=== PATIENT | female | born 1970 | race Caucasian/White ===

== ENCOUNTER 2016-08-23 15:47 | Emergency (ER) | payer BC ==
[2016-08-23 15:59] VITALS: BP 118/70
--- NOTE | 2016-08-23 16:34 | UC ---
Shoulder Pain HPI - HPI Summary HPI Summary: Patient has had tendonitis in the shoulder for over a year, has a very repetitive motion job. the pain is now in her elbow and neck - History of Current Complaint Chief Complaint: UCUpperExtremity Stated Complaint: RIGHT ARM AND NECK SWELLING/PAIN Time Seen by Provider: 08/23/16 16:00 Hx Obtained From: Patient Hx Last Menstrual Period: 08/20/16 ?: No Onset/Duration: Sudden Onset, Lasting Weeks Timing: Constant Severity Initially: Mild Severity Currently: Moderate Character: Dull, Aching Aggravating Factor(s): Movement Alleviating Factor(s): Nothing Associated Signs And Symptoms: Positive: Negative - Allergies/Home Medications Allergies/Adverse Reactions: Allergies Allergy/AdvReac Type Severity Reaction Status Date / Time Penicillins Allergy Intermediate Hives Verified 08/23/16 15:59 Home Medications: Home Medications Ibuprofen TAB* [Motrin TAB* 600 MG] 600 mg PO Q8H PRN 08/23/16 [History Confirmed 08/23/16] PMH/Surg Hx/FS Hx/Imm Hx Previously Healthy: Yes Endocrine History Of: Denies: Diabetes Cardiovascular History Of: Denies: Cardiac Disorders Respiratory History Of: Denies: COPD GI/ History Of: Denies: Ulcer Neurological History Of: Denies: TIA Psychological History Of: Denies: Anxiety Cancer History Of: Denies: Lung Cancer - Surgical History Surgical History: Yes Surgery Procedure, Year, and Place: LEFT KNEE SURGERY, LEEP PROC. 2004, RT HAND SURGERY - Family History Known Family History: Positive: Hypertension Negative: Diabetes - Social History Alcohol Use: None Substance Use Type: Excessive Caffeine Substance Use Comment - Amount & Last Used: coffee all day long Smoking Status (MU): Heavy Every Day Tobacco Smoker Type: Cigarettes Amount Used/How Often: 1 PPD Length of Time of Smoking/Using Tobacco: 31 Years Have You Smoked in the Last Year: Yes Household Exposure Type: Cigarettes - Immunization History Most Recent Influenza Vaccination: Not the 2014/2015 Season Review of Systems Constitutional: Negative Skin: Negative Eyes: Negative ENT: Negative Respiratory: Negative Cardiovascular: Negative Gastrointestinal: Negative Genitourinary: Negative Motor: Negative Neurovascular: Negative Musculoskeletal: Arthralgia, Edema, Myalgia Neurological: Negative Psychological: Negative All Other Systems Reviewed And Are Negative: Yes Physical Exam Triage Information Reviewed: Yes Appearance: Well-Appearing, Well-Nourished, Pain Distress Vital Signs: Initial Vital Signs Temp 98.7 F 08/23/16 15:52 Pulse 77 08/23/16 15:52 Resp 14 08/23/16 15:52 BP 118/70 08/23/16 15:52 Pulse Ox 98 08/23/16 15:52 Vital Signs Reviewed: Yes Eye Exam: Normal Eyes: Positive: Conjunctiva Clear ENT Exam: Normal ENT: Positive: Hearing grossly normal, Pharynx normal, TMs normal Dental Exam: Normal Neck exam: Normal Neck: Positive: Supple, Nontender, No Lymphadenopathy Respiratory Exam: Normal Respiratory: Positive: Chest non-tender, Lungs clear, Normal breath sounds Cardiovascular Exam: Normal Cardiovascular: Positive: RRR, No Murmur, Pulses Normal Abdominal Exam: Normal Abdomen Description: Positive: Nontender, No Organomegaly, Soft Bowel Sounds: Positive: Present Musculoskeletal: Positive: Strength Intact, ROM Intact, Edema @ - in right upper arm diffuse edema, hypertonicity of the right lower arm, upper arm and musculature of the neck noted. numbness and tingling when head is turned from an elevated and abducted arm. Neurological Exam: Normal Psychological Exam: Normal Skin Exam: Normal Shoulder Course/Dx - Course Course Of Treatment: hx obtained, exam performed, meds reviewed, ROM examined, given referral to PT. - Differential Dx/Diagnosis Provider Diagnoses: thoracic outlet syndrome Discharge - Discharge Plan Condition: Stable Disposition: HOME Patient Education Materials: Thoracic Outlet Syndrome (ED) Referrals: Timothy Almanza [Physical Therapist] - No Primary Care Phys,NOPCP [Primary Care Provider] - Additional Instructions: 1. continue with ibuprofen for pain 2. follow up with physical therpay for stretching and joint pain.
== END 2016-08-23 16:33 | disposition home or self-care (01) ==
LOC: UCCORT 15:47
DX: G54.0 Brachial plexus disorders (principal)
CPT/HCPCS: 99211; G0463

== ENCOUNTER 2017-02-05 09:01 | Day surgery (SDC) | payer BC ==
[~2017-02-05 09:01] MED LIST: Buffered Lidocaine 0.9% SYRIN* 5 ML/SYR SYRINGE INTRADERM ONE
[2017-02-05] MEDS ORDERED: Clindamycin 900 MG IVPREMIX(* 900 MG/50 ML SDV IV ONE (09:14)
[2017-02-05] MEDS ORDERED: fentaNYL* 50 MCG/ML 2 ML VIAL (100 MCG VIAL) ONE (09:20)
[2017-02-05] MEDS ORDERED: Midazolam* 1 MG/ML 2 ML VIAL (2 MG) ONE (09:21)
[2017-02-05] MEDS ORDERED: Bupivacaine 0.25% SDV* 30 ML ONE (11:19)
[2017-02-05] MEDS ORDERED: Propofol* 10 MG/ML 20 ML BTL IV PUSH ONE (11:32)
[2017-02-05] MEDS ORDERED: Dexamethasone IV* 4 MG/ML 1 ML (4 MG) ONE (11:32)
[2017-02-05] MEDS ORDERED: Ondansetron INJ* 2 MG/ML VIAL ONE (11:32)
[2017-02-05] MEDS ORDERED: Lidocaine 2% PF * 5 ML VIAL ONE (11:32)
[2017-02-05 12:48] VITALS: BP 119/87
[2017-02-05] MEDS ORDERED: Scopolamine 1.5 mg* PATCH TRANSDERM PRN ×2 (13:05→13:06)
--- NOTE | 2017-02-05 18:50 | OP ---
DATE OF OPERATION: 02/05/17 [facility] DATE OF : 66 SURGEON: Claudy Alfredo MD PIPELINES SUPERVISOR: DAVON Talbot ANESTHESIOLOGIST: Dr. Mason. ANESTHESIA: General. PRE-OP DIAGNOSIS: Right cubital tunnel syndrome. POST-OP DIAGNOSIS: Right cubital tunnel syndrome. PROCEDURE PERFORMED: Right in situ cubital tunnel release. INDICATIONS: Damaris has had progressive symptoms in the ring and small fingers and pain shooting down the medial side of the arm. We talked about risks and benefits. She wanted to proceed. ESTIMATED BLOOD LOSS: 2 mL. COMPLICATIONS: None. FINDINGS: As expected. DESCRIPTION OF PROCEDURE: Damaris was seen in the preoperative holding area. The correct side, site, and procedure were identified. We came back to the operating room. The arm was prepped and draped in the usual fashion. A time- out was performed. We exsanguinated the arm with the Esmarch and the tourniquet was inflated to 250 mmHg. A curvilinear incision was made, centered over Duarte's ligament and extended proximally and distally in line with the ulnar nerve. Dissection was carried down through the subcutaneous tissue. The fascia proximally was released over the ulnar nerve. I then came distally and released Duarte's ligament to the FCU and then subfascial layer. Release was completed well past 8 cm proximal to the medial epicondyle and then distally until the entirety of the FCU fascia was released. I then checked for ulnar nerve subluxation and that was stable. So I went ahead and irrigated out the wound. Subcutaneous tissue was reapproximated with 3-0 Vicryl suture. Skin was closed with 3-0 Monocryl subcuticular suture and Steri-Strips. The operative area was infiltrated with 0.25% plain Marcaine. Wound was dressed with 4 x 4, sterile Webril, ABD, and an Fausto wrap. She was then woken up and taken to the recovery room in stable condition. [id number]/[facility] #: [id number] [facility]
== END 2017-02-05 13:11 | disposition home or self-care (01) ==
LOC: OREAST 09:01
PROVIDERS: ATTEND Orthopaedic Surgery Hand Surgery
DX: G56.21 Lesion of ulnar nerve, right upper limb (principal); F17.210 Nicotine dependence, cigarettes, uncomplicated
CPT/HCPCS: 81025; J1100; J2250; J2405; J2704; J3010

== ENCOUNTER 2018-07-29 17:38 | Emergency (ER) | payer BC ==
[2018-07-29 17:57] VITALS: BP 122/66
--- NOTE | 2018-07-29 18:22 | UC ---
Knee Pain HPI - HPI Summary HPI Summary: Patient states about 5 days ago she was syncopal episode at work. Patient states when she fell she struck her head and also injured her left knee. Patient was evaluated emergency department for syncopal episode. Patient had cain placed her head. Patient states at that time there was no focus given to her knee. Patient states her knee did not feel too bad until she returned to work this week. Patient states she started on a concrete for for 10 hours on Thursday and again today. Patient states Guilherme 2 hours understanding at work she's got significant pain. Patient states she's taken Tylenol with mild improvement. Without any paresthesia or weakness. No hip pain no back pain. Patient took Tylenol this morning at 9 but none since. Patient states she had a history of surgery on her left knee several years ago. Medications reviewed this visit Pt denies - History of Current Complaint Chief Complaint: UCLowerExtremity Stated Complaint: LEFT KNEE INJURY Time Seen by Provider: 07/29/18 18:16 Hx Obtained From: Patient Hx Last Menstrual Period: 05/19/18 ?: No Onset/Duration: Gradual Onset Pain Intensity: 9 - Allergies/Home Medications Allergies/Adverse Reactions: Allergies Allergy/AdvReac Type Severity Reaction Status Date / Time Penicillins Allergy Intermediate Hives Verified 07/29/18 17:50 Home Medications: Home Medications NK [No Home Medications Reported] 07/29/18 [History Confirmed 07/29/18] PMH/Surg Hx/FS Hx/Imm Hx Previously Healthy: Yes - Surgical History Surgical History: Yes Surgery Procedure, Year, and Place: LEFT KNEE SURGERY,. LEEP PROC. 2004,. RT HAND SURGERY. Rt BREAST - BIOPSY - W/ MARKER PLACED - BENIGN - Family History Known Family History: Positive: Hypertension, Non-Contributory Negative: Diabetes - Social History Occupation: Employed Full-time - [employer] Lives: With Family Alcohol Use: None Substance Use Type: None Substance Use Comment - Amount & Last Used: coffee all day long Smoking Status (MU): Heavy Every Day Tobacco Smoker Type: Cigarettes Amount Used/How Often: 1/2 PPD for 30 yrs Length of Time of Smoking/Using Tobacco: 31 Years Have You Smoked in the Last Year: Yes Household Exposure Type: Cigarettes - Immunization History Most Recent Influenza Vaccination: Not the Season Review of Systems All Other Systems Reviewed And Are Negative: Yes Constitutional: Positive: Negative Neurovascular: Positive: Negative Musculoskeletal: Positive: Other: - left knee Neurological: Positive: Negative Physical Exam - Summary Physical Exam Summary: Vital Signs Reviewed: Yes A+Ox3, no distress Eyes: Conjunctiva Clear ENT: Hearing grossly normal neck: supple Respiratory: Positive: No respiratory distress, No accessory muscle use Cardiovascular: skin color reflect adequate perfusion Musculoskeletal Exam: + SLE, + flex/ext knee with mild pain inferior patella, + flex/ext ankle Neg anterior/posterior drawer, Neg laxity with lateral joint pain No effusion, no ecchymosis, abraison Neurological: Positive: Alert, ambulatory without difficulty Psychological: Positive: Normal Response To Family Skin: Positive: no rash, no ecchymosis Triage Information Reviewed: Yes Vital Signs: Initial Vital Signs Temp 98.5 F 07/29/18 17:51 Pulse 84 07/29/18 17:51 Resp 16 07/29/18 17:51 BP 122/66 07/29/18 17:51 Pulse Ox 99 07/29/18 17:51 Diagnostics - Radiology No standard instances Radiology Interpretation Completed By: Radiologist - Patient Name: ML QUILES Medical Record#: [id number] Ordering Physician: Nevin Louis MD Acct.#: [id number] : 1970 Age: 48 Sex: F Location: [facility] Exam Date: 07/29/181830 ADM Status: [facility] ER Order Information: KNEE LEFT 4+ VWS Accession Number: [id number] CPT: 31607 INDICATION: Left knee injury. TECHNIQUE: 4 views of the left knee were obtained. FINDINGS: The bones are in normal alignment. There is a small joint effusion. No fracture is seen. Joint spaces appear maintained. IMPRESSION: SMALL JOINT EFFUSION, NO FRACTURE IS SEEN. R0 Preliminary Imaging Read R0 ____ <Electronically signed by Thee Ward MD in OV> 07/30/18711 Dictated By: Thee Ward MD Dictated Date/Time: 07/30/18711 Transcribed Date/Time: 07/30/18709 Copy to: CC:Armida Herrmann EXTRUSION SUPERVISOR; Nevin Louis MD Imaging - [facility] Imaging - [place] [facility] [place] Imaging - [facility] [id number] [place] [id number] ph [phone] ph ([phone] ph ) This report is only to be considered final once signed by the Provider(s) as displayed in the "<Electronically Signed by >" field (s). Absence of a signature indicates the report is in a draft status and still needs to be finalized. In the event this document was created by someone other than the signing Provider, the individual initiating the document will be listed in the "Entered by:" or "Dictated by:" rosado. 1 of 1 Knee Pain Course/Dx - Course Course Of Treatment: Patient presents to urgent care with left knee pain. Patient with a remote history of left knee injury which required surgery of a muscle or ligament patient's unsure. Patient had a syncopal episode several days ago fell. Patient states pain is gotten worse and she's return to work and has to stand on a concrete floor. Patient denies paresthesias. Pt took Tylenol this morning. VSS Pt with pain inferior margin of patella. No laxity will image anticipate reinier, crutches motrin/apap F/u with Dr. Landa Pt declined analgesia here - Differential Dx/Diagnosis Provider Diagnosis: Knee injury Discharge - Sign-Out/Discharge Documenting (check all that apply): Patient Departure All imaging exams completed and their final reports reviewed: No - Discharge Plan Condition: Stable Disposition: HOME Patient Education Materials: Crutch Instructions (ED), Knee Pain (ED) Referrals: Philipp Landa MD [Medical Doctor] - (CAll to schedule a follow-up appointment ) Armida Herrmann [Primary Care Provider] - Additional Instructions: - -wear reinier wrap for comfort and support -apply ice (20 min at a time) every 2-3 hours for the next 2 days -use crutches until you can walk normally without a limp -Elevate your leg - this will help with swelling and pain - Alternate ibuprofen (advil, Motrin) 600mg and tylenol every 3 hours for pain. Take with food. Do NOT take for more than 4-5 days -You have been given the contact information for the orthopedic doctor - okay call him tomorrow for a follow-up appointment. You may also discuss with your primary doctor at your appointment tomorrow morning As discussed, your radiograph was reviewed by the provider that treated you tonight. It will be read by a radiologist tomorrow morning. If there is a finding other than that discussed with you today, you will receive a call from a care provider. - Billing Disposition and Condition Condition: STABLE Disposition: Home
== END 2018-07-29 20:04 | disposition home or self-care (01) ==
LOC: UCCORT 17:38
DX: S89.92XA Unspecified injury of left lower leg, initial encounter (principal); M25.462 Effusion, left knee; W19.XXXA Unspecified fall, initial encounter; Y92.9 Unspecified place or not applicable; Y99.0 Civilian activity done for income or pay; Z88.0 Allergy status to penicillin; F17.210 Nicotine dependence, cigarettes, uncomplicated
CPT/HCPCS: 99213; G0463

== ENCOUNTER 2019-01-06 08:44 | Emergency (ER) | payer BC ==
[2019-01-06 09:37] VITALS: BP 111/71
--- NOTE | 2019-01-06 10:10 | UC ---
Respiratory Complaint HPI - HPI Summary HPI Summary: 48 yo female with one day hx of sore throat/cough/bilateral otalgia and malaise Grand daughter has strep no fever no cp or sob no n/v/d - History of Current Complaint Chief Complaint: UCGeneralIllness Stated Complaint: COUGH,ST Time Seen by Provider: 01/06/19 09:51 Hx Obtained From: Patient Hx Last Menstrual Period: 12/31/18 Onset/Duration: Gradual Onset, Lasting Hours Timing: Constant Severity Initially: Mild Severity Currently: Moderate Pain Intensity: 0 Pain Scale Used: 0-10 Numeric Character: Cough: Nonproductive Aggravating Factors: Nothing Alleviating Factors: Nothing Associated Signs And Symptoms: Negative: Dyspnea, Fever, Chills, Pleuritic Chest Pain, Wheezing, Hemoptysis, Dizziness, Calf Pain, Calf Swelling, Edema, URI, Nasal Congestion, Hoarseness, Sinus Discomfort - Allergies/Home Medications Allergies/Adverse Reactions: Allergies Allergy/AdvReac Type Severity Reaction Status Date / Time Penicillins Allergy Intermediate Hives Verified 01/06/19 09:36 PMH/Surg Hx/FS Hx/Imm Hx Previously Healthy: Yes - Surgical History Surgical History: Yes Surgery Procedure, Year, and Place: LEFT KNEE SURGERY,. LEEP PROC. 2004,. RT HAND SURGERY. Rt BREAST - BIOPSY - W/ MARKER PLACED - BENIGN - Family History Known Family History: Positive: Hypertension, Non-Contributory Negative: Diabetes - Social History Alcohol Use: None Substance Use Type: None Substance Use Comment - Amount & Last Used: coffee all day long Smoking Status (MU): Heavy Every Day Tobacco Smoker Type: Cigarettes Amount Used/How Often: 1/2 PPD for 30 yrs Length of Time of Smoking/Using Tobacco: 31 Years Have You Smoked in the Last Year: Yes Household Exposure Type: Cigarettes - Immunization History Most Recent Influenza Vaccination: Not the 2015/2016 Season Review of Systems All Other Systems Reviewed And Are Negative: Yes Constitutional: Positive: Fatigue Skin: Positive: Negative Eyes: Positive: Negative ENT: Positive: Sore Throat, Ear Ache Respiratory: Positive: Cough Cardiovascular: Positive: Negative Gastrointestinal: Positive: Negative Genitourinary: Positive: Negative Motor: Positive: Negative Neurovascular: Positive: Negative Musculoskeletal: Positive: Negative Neurological: Positive: Negative Psychological: Positive: Negative Physical Exam Triage Information Reviewed: Yes Appearance: No Pain Distress, Well-Nourished Vital Signs: Initial Vital Signs Temp 99.0 F 01/06/19 09:33 Pulse 71 01/06/19 09:33 Resp 16 01/06/19 09:33 BP 111/71 01/06/19 09:33 Pulse Ox 98 01/06/19 09:33 Vital Signs Reviewed: Yes Eyes: Positive: Conjunctiva Clear ENT: Positive: Hearing grossly normal, Pharynx normal, TMs normal, Uvula midline. Negative: Nasal congestion, Nasal drainage, Tonsillar swelling, Tonsillar exudate, Trismus, Muffled voice, Hoarse voice, Sinus tenderness Dental: Positive: Other: - dentures Neck: Positive: Supple, Nontender, No Lymphadenopathy Respiratory: Positive: Lungs clear, Normal breath sounds, No respiratory distress, No accessory muscle use Cardiovascular: Positive: RRR, No Murmur Musculoskeletal: Positive: ROM Intact, No Edema Neurological: Positive: Alert Psychological Exam: Normal Skin Exam: Normal Diagnostics - Laboratory Lab Results: strep (-) Respiratory Course/Dx - Differential Dx/Diagnosis Provider Diagnosis: Viral URI with cough, Pharyngitis, Smoker Discharge ED - Sign-Out/Discharge Documenting (check all that apply): Patient Departure All imaging exams completed and their final reports reviewed: No Studies - Discharge Plan Condition: Stable Disposition: HOME Prescriptions: Benzonatate CAP* [Tessalon CAP*] 100 - 200 mg PO TID PRN #28 cap PRN Reason: Cough Patient Education Materials: Upper Respiratory Infection (ED) Forms: *Work Release Referrals: Armida Herrmann [Primary Care Provider] - 4 Days (if not better) - Billing Disposition and Condition Condition: STABLE Disposition: Home
== END 2019-01-06 10:19 | disposition home or self-care (01) ==
LOC: UCCORT 08:44
DX: J06.9 Acute upper respiratory infection, unspecified (principal); R05 Cough; H92.03 Otalgia, bilateral; J02.9 Acute pharyngitis, unspecified; F17.210 Nicotine dependence, cigarettes, uncomplicated; Z88.0 Allergy status to penicillin
CPT/HCPCS: 87651; 99212; G0463

== ENCOUNTER 2019-01-31 19:14 | Emergency (ER) | payer BC ==
[2019-01-31 20:29] VITALS: BP 109/68
--- NOTE | 2019-01-31 21:05 | ED ---
GI/ HPI - HPI Summary HPI Summary: 48 yr old female with the complaint of no period since November 10 2018, abdominal bloating, and today passed some brown discharge that has stopped. She denies abdominal pain. She has no fever. No other symptoms. - History of Current Complaint Chief Complaint: UCGeneralIllness Time Seen by Provider: 01/31/19 20:56 Stated Complaint: PERSONAL Hx Last Menstrual Period: 11/10/18 Pain Intensity: 0 - Allergy/Home Medications Allergies/Adverse Reactions: Allergies Allergy/AdvReac Type Severity Reaction Status Date / Time Penicillins Allergy Intermediate Hives Verified 01/31/19 20:22 Home Medications: Home Medications NK [No Home Medications Reported] 01/31/19 [History Confirmed 01/31/19] PMH/Surg Hx/FS Hx/Imm Hx Endocrine/Hematology History: Denies: Hx Diabetes Cardiovascular History: Denies: Hx Hypertension, Hx Pacemaker/ICD, Other Cardiovascular Problems/ Disorders Respiratory History: Denies: Hx Chronic Obstructive Pulmonary Disease (COPD), Hx Lung Cancer, Other Respiratory Problems/Disorders GI History: Denies: Hx Ulcer, Other GI Disorders History: Denies: Hx Renal Disease Musculoskeletal History: Denies: Other Musculoskeletal History Sensory History: 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 UTERINE CANCER, 1994 Hx Chemotherapy: No Hx Radiation Therapy: No - Surgical History Surgery Procedure, Year, and Place: LEFT KNEE SURGERY,. LEEP PROC. 2004,. RT HAND SURGERY. Rt BREAST - BIOPSY - W/ MARKER PLACED - BENIGN Hx Anesthesia Reactions: No Infectious Disease History: No Infectious Disease History: Denies: Traveled Outside the [place] in Last 30 Days - Family History Known Family History: Positive: Hypertension, Non-Contributory Negative: Diabetes - Social History Alcohol Use: None Substance Use Type: Reports: None Substance Use Comment - Amount & Last Used: coffee all day long Smoking Status (MU): Heavy Every Day Tobacco Smoker Type: Cigarettes Amount Used/How Often: 1/2 PPD for 30 yrs Length of Time of Smoking/Using Tobacco: 31 Years Have You Smoked in the Last Year: Yes Review of Systems Constitutional: Negative Negative: Abdominal Pain, Vomiting, Diarrhea, Nausea Positive: other - missed periods past couple months and bloating lower abdomen All Other Systems Reviewed And Are Negative: Yes Physical Exam Triage Information Reviewed: Yes Vital Signs On Initial Exam: Initial Vitals Temp Pulse Resp BP Pulse Ox 98.5 F 87 16 109/68 98 01/31/19 20:23 01/31/19 20:23 01/31/19 20:23 01/31/19 20:23 01/31/19 20:23 Appearance: Positive: Well-Appearing Skin: Positive: Warm, Skin Color Reflects Adequate Perfusion Head/Face: Positive: Normal Head/Face Inspection Eyes: Positive: EOMI ENT: Positive: Normal ENT inspection Neck: Positive: Nontender Respiratory/Lung Sounds: Positive: Clear to Auscultation, Breath Sounds Present Cardiovascular: Positive: RRR. Negative: Murmur Abdomen Description: Positive: Nontender, Distended - lower a little distended. Negative: CVA Tenderness (R), CVA Tenderness (L) Musculoskeletal: Positive: Strength/ROM Intact Neurological: Positive: Sensory/Motor Intact, Alert, Oriented to Person Place, Time, CN Intact II-III, Speech Normal Psychiatric: Positive: Normal Diagnostics - Vital Signs Vital Signs Temp Pulse Resp BP Pulse Ox 01/31/19 20:23 98.5 F 87 16 109/68 98 - Laboratory Lab Statement: Any lab studies that have been ordered have been reviewed, and results considered in the medical decision making process. GIGU Course/Dx - Course Course Of Treatment: 48 yr old with lower abdominal bloating and missed periods. HCG here is negative. Recommend to the ER for further labs and pelvic ultrasound to evaluate her lower abdominal bloating and distention. - Diagnoses Provider Diagnoses: Abdominal distention, Missed periods Discharge ED - Sign-Out/Discharge Documenting (check all that apply): Patient Departure All imaging exams completed and their final reports reviewed: No Studies - Discharge Plan Condition: Good Disposition: HOME-RECOMMEND TO ED Patient Education Materials: Abdominal Pain (ED) Referrals: Armida Herrmann [Primary Care Provider] - Additional Instructions: PLEASE GO TO THE ER NOW FOR FURTHER LABS AND TESTING. DO NOT DELAY. - Billing Disposition and Condition Condition: GOOD Disposition: Home-Recommend to ED
== END 2019-01-31 21:22 | disposition home health service (06) ==
LOC: UCCORT 19:14
DX: N91.2 Amenorrhea, unspecified (principal); R14.0 Abdominal distension (gaseous); F17.210 Nicotine dependence, cigarettes, uncomplicated; Z88.0 Allergy status to penicillin; Z85.42 Personal history of malignant neoplasm of other parts of uterus; Z85.828 Personal history of other malignant neoplasm of skin
CPT/HCPCS: 84702; 99212; G0463

== ENCOUNTER 2022-10-09 05:33 | Observation (INO) ==
[~2022-10-09 05:33] MED LIST changes: -Buffered Lidocaine 0.9% SYRIN* 5 ML/SYR SYRINGE INTRADERM ONE; +Buffered Lidocaine 1% SYRIN 1 ml INTRADERM ONE; +Lactated Ringers 1000 ml BAG 1,000 ML IV SCH; +Metoclopramide 5 MG/ML VIAL (10 mg) IV PRN; +Naloxone 0.4 mg VIAL 0.4 mg/ml 1 ml VIAL IV PRN; +Ondansetron 4 mg VIAL 2 MG/ML 2 ml VIAL IV PRN
[2022-10-09] MEDS ORDERED: ceFAZolin 2 GM PREMIX 2 GM/50 ML BAG ONE (06:39)
[2022-10-09] MEDS ORDERED: Phenylephrine IV 10 MG/ML 1 ml VIAL ONE (07:06)
[2022-10-09] MEDS ORDERED: Propofol 10 MG/ML 20 ML BTL ONE ×2 (07:06→08:53)
[2022-10-09] MEDS ORDERED: fentaNYL 100 mcg/2 ml 50 MCG/ML VIAL ONE ×5 (07:08→10:55)
[2022-10-09] MEDS ORDERED: Lidocaine 2% PF 5 ML VIAL ONE (07:08)
[2022-10-09] MEDS ORDERED: ROPIVACAINE 5 MG/ML 30 ML BTL (0.5%) ONE (07:09)
[2022-10-09] MEDS ORDERED: Midazolam 2 mg/2 ml VIAL 1 mg/ml 2 ml VIAL (2 mg) ONE (07:09)
[2022-10-09] MEDS ORDERED: Dexamethasone IV 4 MG/ML VIAL 1 ml VIAL ONE ×2 (07:09→08:35)
[2022-10-09 07:57] LABS: Rapid COVID-19 Molecular Undetected (Undetected)
[2022-10-09] MEDS ORDERED: Phenylephrine 40 mcg/mL 10mL (400mcg) SYRINGE ONE (08:13)
[2022-10-09] MEDS ORDERED: HYDROmorphone 0.5 MG/0.5 ML SYRINGE ONE (08:16)
[2022-10-09] MEDS ORDERED: Sterile Water for Inj 10 ML ONE (08:23)
[2022-10-09] MEDS ORDERED: Ondansetron 4 mg VIAL 2 MG/ML 2 ml VIAL ONE (08:35)
[2022-10-09] MEDS ORDERED: Dexmedetomidine 200 mcg/2 ml 2 ml VIAL (200 mcg) ONE (09:49)
[2022-10-09] MEDS ORDERED: Lactulose 30 ml UDC PO PRN (10:24)
[2022-10-09] MEDS ORDERED: Ondansetron ODT 4 mg TAB 4 MG TAB PO PRN (10:24)
[2022-10-09] MEDS ORDERED: Ondansetron 4 mg VIAL 2 MG/ML 2 ml VIAL IV PRN (10:24)
[2022-10-09] MEDS ORDERED: Magnesium Hydroxide LIQ 30 ML UDC PO PRN (10:24)
[2022-10-09] MEDS ORDERED: Morphine 2 MG/ML SYRINGE IV PRN (10:24)
[2022-10-09] MEDS ORDERED: HYDROcodone/ACETAMIN 5/325 mg TAB ONE ×2 (10:55→10:58)
[2022-10-09] MEDS: fentaNYL 100 mcg/2 ml 50 MCG/ML VIAL IV PRN ×4 (10:56→11:13)
[2022-10-09] MEDS: HYDROcodone/ACETAMIN 5/325 mg TAB PO PRN ×2 (10:56→10:58)
[2022-10-09] MEDS ORDERED: Lactated Ringers 1000 ml BAG 1,000 ML IV SCH (11:00)
[2022-10-09 14:58] VITALS: BP 136/74
[2022-10-09] MEDS ORDERED: ceFAZolin 1 GM ADVAN 1 GM in NS 0.9% 50 ML 50 ML IVPB SCH (16:00)
[2022-10-09] MEDS ORDERED: Magnesium Hydroxide LIQ 30 ML UDC PO SCH (21:00)
[2022-10-10] MEDS ORDERED: Vitamin THERAPEUTIC TAB PO SCH (09:00)
== END 2022-10-09 17:40 | disposition home or self-care (01) ==
LOC: SSU 05:33 → OR 05:33 → EDSTATUS 11:30
PROVIDERS: ADMIT Orthopaedic Surgery Adult Reconstructive Orthopaedic Surgery; ATTEND Orthopaedic Surgery Adult Reconstructive Orthopaedic Surgery